=== PATIENT | female | born 1995 | race American Indian/Alaskan Native ===

== ENCOUNTER 2019-02-28 20:06 | Emergency (ER) | payer OTHER ==
[2019-02-28 20:13] VITALS: BP 121/71
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
--- NOTE | 2019-02-28 21:54 | XRay Report ---
PROCEDURE: Right knee. TECHNIQUE: 3 views. HISTORY: Right knee pain . COMPARISONS: None. FINDINGS: The bones appear intact without fracture or dislocation. The joint spaces appear normal. The soft tis sues are unremarkable. There is no evidence of a knee effusion. IMPRESSION: Normal study. This document is electronically signed by Benjamin Grewal MD., Feb 28 2019 09:53:09 PM ET
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
== END 2019-02-28 22:58 | disposition home or self-care (01) ==
LOC: ED 20:06
DX: M25.561 Pain in right knee (principal); R51 Headache